=== PATIENT | male | born 1945 | race Hispanic/Latino ===

== ENCOUNTER 2021-03-26 10:19 | Outpatient (CLI) | payer SELFPAY ==
[2021-03-26 11:03] LABS: Hemoglobin 12.2 g/dL (13.5-17.5); Mean Corpuscular HGB CONC 30.9 g/dL (32.0-36.0); Mean Corpuscular Hemoglobin 26.6 pg (27.0-33.0); Mean Corpuscular Volume 86.1 fl (81.2-95.1); Mean Platelet Volume 10.4 fl (7.4-10.4); Platelet Count 275 10x3/uL (150-450); RBC Distribution Width 16.2 % (11.5-14.5); Red Blood Cell (RBC) Count 4.59 10x6/uL (4.32-5.72); White Blood Cell (WBC) Count 6.1 10x3/uL (3.5-10.5)
[2021-03-26 11:20] LABS: Anion Gap 13 mmol/L (10-20); BUN (Urea Nitrogen) 12 mg/dL (8.4-25.7); Calc. Creatinine Clearance 0 mL/min (70-130); Calcium 9.9 mg/dL (7.8-10.44); Carbon Dioxide 29 mmol/L (23-31); Chloride 103 mmol/L (98-107); Glucose 96 mg/dL (83-110); Potassium 4.2 mmol/L (3.5-5.1); Sodium 141 mmol/L (136-145)
== END 2021-03-26 10:20 | disposition home or self-care (01) ==
LOC: LABBT 10:19
PROVIDERS: ATTEND Urology
DX: Z01.818 Encounter for other preprocedural examination (principal); N40.1 Benign prostatic hyperplasia with lower urinary tract symptoms
CPT/HCPCS: 80048; 85027; 93005; 93010

== ENCOUNTER 2021-04-03 06:27 | Day surgery (SDC) | payer OTHER, SELFPAY ==
[2021-03-28 12:30] VITALS: BMI 25.2
[2021-04-03] MEDS ORDERED: Levofloxacin 500 mg/D5W 100 ml Premix Bag ONE (07:50)
[2021-04-03] MEDS ORDERED: Fentanyl 100 MCG/2 ML VIAL ONE (08:07)
[2021-04-03] MEDS ORDERED: ePHEDrine 50 MG/ML VIAL ONE (08:19)
[2021-04-03] MEDS ORDERED: PROPOFOL 200 MG/20 ML VIAL ONE (08:19)
[2021-04-03] MEDS ORDERED: Ondansetron PF 4 MG/2 ML Vial ONE (08:19)
[2021-04-03] MEDS ORDERED: Lidocaine 1% PF 5 ML VIAL ONE (08:19)
[2021-04-03] MEDS ORDERED: Dexamethasone 20 MG/5 ML VIAL ONE (08:19)
[2021-04-03] MEDS ORDERED: Ketorolac Tromethamine 30 MG/ML VIAL ONE (10:05)
[2021-04-03] MEDS ORDERED: Oxybutynin 5 MG TAB ONE (10:06)
[2021-04-03] MEDS ORDERED: Phenazopyridine HCl 100 MG TAB ONE (10:06)
[2021-04-03] MEDS ORDERED: Morphine 4 MG/ML VIAL ONE (11:58)
== END 2021-04-03 15:00 | disposition home or self-care (01) ==
LOC: SDC 06:27
PROVIDERS: ATTEND Urology
PROC: 0VT08ZZ Resection of Prostate, Via Natural or Artificial Opening Endoscopic (ICD-10-PCS; principal; 2021-04-03)
DX: N40.1 Benign prostatic hyperplasia with lower urinary tract symptoms (principal); R33.8 Other retention of urine; N32.89 Other specified disorders of bladder; Z79.899 Other long term (current) drug therapy
CPT/HCPCS: 88305; J1885; J1956; J2270; J3010